=== PATIENT | female | born 1955 | race Caucasian/White ===

== ENCOUNTER 2017-02-14 18:15 | Emergency (ER) | payer OTHER ==
[2017-02-14 18:19] VITALS: BP 124/61; PULSE 86; TEMP 98.1; BMI 46.5
--- NOTE | 2017-02-14 19:05 | PDOC ---
History of Present Illness - General Chief Complaint: Injury Stated Complaint: LACERATION Time Seen by Provider: 02/14/17 19:01 History Source: Patient Exam Limitations: No Limitations - History of Present Illness Initial Comments: 02/14/17 19:07 MY CHIEF COMPLAINT: LACERATION RT. FOOT 5TH TOE HISTORY OF PRESENT ILLNESS: PT IS A 61 Y/O FEMALE WITH H/O LEUKEMIA, AND LEFT BREAST CA HERE TODAY WITH LACERATION TO RT. 5TH TOE AFTER DROPPING A COOKING POT ON HER TOE PRIOR TO ARRIVAL HERE. PT. DENIES ANY PAIN IN RT. FOOT, IS ABLE TO MOVE ALL TOES AND RT. FOOT. PT. HAD BEEN SEEN HERE ON 01/27/17 WAS NOTED TO HAVE A 5 TH MCP JT FRACTURE PROXIMALLY . PT. DENIES ANY NUMBNESS OF FOOT. PT IS UNSURE OF HER TETANUS VACCINE STATUS. 02/14/17 20:00 Occurred: reports: just prior to arrival Pain Location: reports: lower extremity (rt) Past History - Past Medical History Allergies/Adverse Reactions: Allergies Allergy/AdvReac Type Severity Reaction Status Date / Time aspirin Allergy Swelling Verified 02/14/17 18:20 Home Medications: Ambulatory Orders Amoxicillin/Potassium Clav [Augmentin 875-125 Tablet] 1 each PO BID #20 tablet 10/31/15 Cephalexin Monohydrate [Keflex -] 500 mg PO Q8H #29 capsule 02/14/17 Cancer: Yes (S/P BREAST CA, LEUKEMIA) Diabetes: Yes (pre) HTN: Yes - Surgical History Abdominal Surgery: Yes (gastric bypass) - Psycho/Social/Smoking Cessation Hx Suicidal Ideation: No Smoking History: Never smoked Information on smoking cessation initiated: No Hx Alcohol Use: No Drug/Substance Use Hx: No Substance Use Type: None Review of Systems - Review of Systems Able to Perform ROS?: Yes Constitutional: No: Symptoms Reported HEENTM: No: Symptoms Reported Respiratory: No: Symptoms reported Cardiac (ROS): No: Symptoms Reported ABD/GI: No: Symptoms Reported : No: Symptoms Reported Musculoskeletal: No: Symptoms Reported Integumentary: Yes: Other (LACERATION PROXIMAL TO RT. 5TH TOES LINEAR) Neurological: No: Symptoms reported *Physical Exam - Vital Signs Last Vital Signs Temp Pulse Resp BP Pulse Ox 98.1 F 86 18 124/61 97 02/14/17 18:18 02/14/17 18:18 02/14/17 18:18 02/14/17 18:18 02/14/17 18:18 - Physical Exam General Appearance: Yes: Appropriately Dressed Vascular Pulses: Dorsalis-Pedis (R): 4+ Extremity: positive: Normal Capillary Refill, Normal Range of Motion (RT. FOOT ALL TOES) Integumentary: positive: Other (linear laceration rt. foot slightly proximal to 5 toe approx 2.6 cm x 0.25 cm ) Neurologic: positive: Alert, Normal Response, Respond to painful stimul (rt. foot/toes ), Responsive. negative: Numbness, Sensory Deficit (rt. foot/toes) Procedures - Consent Consent obtained: From Patient - Laceration/Wound Repair Right Proximal Dorsal Toe 5th digit Wound Length: 2.6 to 5.0 cm Wound Explored: clean Wound's Depth, Shape: superficial, linear Irrigated w/ Saline: Yes Betadine Prep: Yes Anesthesia: 1% Lidocaine Amount of Anesthetic (ccs): 5 Wound Repaired With: Sutures Suture Size/Type: 4:0 Number of Sutures: 5 (interrupted ) Sterile Dressing Applied: No Splint Applied: No Sling Applied: No ED Treatment Course - RADIOLOGY Radiology Studies Ordered: Category Date Time Status FOOT-RIGHT [RAD] Stat Radiology 02/14/17 19:04 Ordered Medical Decision Making - Medical Decision Making 02/14/17 19:23 PT IS A 61 Y/O FEMALE WITH H/O LEUKEMIA, AND LEFT BREAST CA HERE TODAY WITH LACERATION TO RT. 5TH TOE AFTER DROPPING A COOKING POT ON HER TOE PRIOR TO ARRIVAL HERE. PT. DENIES ANY PAIN IN RT. FOOT, IS ABLE TO MOVE ALL TOES AND RT. FOOT. PT. HAD BEEN SEEN HERE ON 01/27/17 WAS NOTED TO HAVE A 5 TH MCP JT FRACTURE PROXIMALLY . PT. DENIES ANY NUMBNESS OF FOOT. PT IS UNSURE OF HER TETANUS VACCINE STATUS. 02/14/17 20:00 right foot proximal to 5th toe r/o fracture rt. foot, 5th toe PLAN: TDAP 0.5ml IM now keflex 500 mg po now than q 8 hrs for 10 days suture removal in 10-14 days XRAY RIGHT FOOT NEGATIVE FOR FRACTURE 02/14/17 20:06 *DC/Admit/Observation/Transfer Diagnosis at time of Disposition: Laceration of foot Qualifiers: Encounter type: initial encounter Laterality: right Qualified Code(s): S91.311A - Laceration without foreign body, right foot, initial encounter - Discharge Dispostion Disposition: HOME Condition at time of disposition: Stable - Prescriptions Prescriptions: Cephalexin Monohydrate [Keflex -] 500 mg PO Q8H #29 capsule - Referrals Referrals: Guillaume Young MD [Primary Care Provider] - - Patient Instructions Additional Instructions: CLEANSE WOUND WITH ANTIBACTERIAL SOAP AND WATER, DRY APPLY THAN APPLY TINY AMOUNT OF BACITRACIN OINTMENT COVER WITH BANDAID LET AIR OUT AT NIGHT WHEN SLEEPING RETURN HERE IN 10-14 DAYS FOR SUTURE REMOVAL OR SOONER IF ANY REDNESS AROUND WOUND OR FEVER OR DISCHARGE TODAY YOUR TETANUS, DIPTHERIA AND PERTUSSIS VACCINE WAS UPDATED PATIENT VOICED UNDERSTANDING OF DISCHARGE INSTRUCTIONS AND ALL QUESTIONS WERE ANSWERED
[2017-02-14] MEDS ORDERED: DIPHTH,PERTUSS(ACELL),TET 0.5 ML DISP.SYRIN IM ONE (19:56)
[2017-02-14] MEDS ORDERED: CEPHALEXIN MONOHYDRATE 500 MG CAPSULE (UD) PO ONE (19:58)
[2017-02-14] MEDS ORDERED: CEPHALEXIN MONOHYDRATE 500 MG CAPSULE (UD) ONE (20:24)
== END 2017-02-14 21:00 | disposition home or self-care (01) ==
LOC: JERFT 18:15
PROC: 0HQMXZZ Repair Right Foot Skin, External Approach (ICD-10-PCS; principal; 2017-02-14)
PROC: 3E0234Z Introduction of Serum, Toxoid and Vaccine into Muscle, Percutaneous Approach (ICD-10-PCS; 2017-02-14)
DX: S91.114A Laceration without foreign body of right lesser toe(s) without damage to nail, initial encounter (principal); W20.8XXA Other cause of strike by thrown, projected or falling object, initial encounter; Y93.89 Activity, other specified; Y92.038 Other place in apartment as the place of occurrence of the external cause; I10 Essential (primary) hypertension; R73.03 Prediabetes; Z85.6 Personal history of leukemia
CPT/HCPCS: 73630-TC-RT; 90715; 99281-25

== ENCOUNTER 2017-02-24 09:13 | Emergency (ER) | payer OTHER ==
[2017-02-24 09:16] VITALS: BP 134/76; PULSE 67; TEMP 98.3; BMI 46.5
--- NOTE | 2017-02-24 09:52 | PDOC ---
Suture Removal/Wound Check HPI - History of Present Illness Chief Complaint: Suture/Staple Removal(Here) Stated Complaint: SUTURE REMOVAL Time Seen by Provider: 02/24/17 09:34 History Source: Yes: Patient Exam Limitations: Yes: No Limitations Treated at: [facility] Date of Last ED visit: 02/14/17 - Previous ED Treatment Type of procedure performed on last visit: Yes: Laceration Repair Tetanus Immunization: Yes: Given at last ED visit Antibiotics Prescribed: Yes (keflex) - Onset of Previous Treatment Date of Occurence: 02/14/17 Comment:: 02/24/17 09:59 MY CHIEF COMPLAINT: HERE FOR SUTURE REMOVAL RT. FOOT HISTORY OF PRESENT ILLNESS: She is a 61 year old female with a history of leukemia here today for suture removal on her right foot between her right fourth and fifth toes patient was sutured here on 02/14/2017. Patient is up-to- date with tetanus given at last visit and patient was discharged on Keflex for which she has been compliant with. Patient denies any tenderness of the area. Patient reports that she has been letting the area air out at night. Patient denies any fever or redness of area. 02/24/17 10:42 Past History - Past Medical History Allergies/Adverse Reactions: Allergies aspirin Allergy (Verified 02/24/17 09:16) Swelling Home Medications: Ambulatory Orders NK [No Known Home Medication] 02/24/17 General: Yes: other (leukemia in remission ) - Social History Smoking Status: Never smoked Suture Removal/Wound Check PE - Physical Exam Laceration/Wound Check Symptoms: reports: None Current Severity Level: None Maximum Severity Level: None Location of Laceration/Wound: right: Foot (between rt. 4th & 5 th toe) Comments: 02/24/17 09:54 moistness of skin noted at suture line, one interrupted suture removed, wound edge widened, skin around edges pale, no signs of infection 4 interrupted sutures remain Pain Radiation: None *Review of Systems - Review of Systems Able to Perform ROS?: Yes Constitutional: No: Symptoms Reported HEENTM: No: Symptoms Reported Respiratory: No: Symptoms reported Cardiac (ROS): No: Symptoms Reported ABD/GI: No: Symptoms Reported : No: Symptoms Reported Musculoskeletal: No: Symptoms Reported Integumentary: Yes: Other (suture line rt foot between 4th and 5 th 5 sutures placed on 7/20/17 here, no c/o pain ) Neurological: No: Symptoms reported Procedures - Consent Consent obtained: From Patient - Additional Procedures Progress: 02/24/17 09:58 suture line Betadine and normal saline 0.9% area dried well and one suture removed without complications wound is slightly widened will not remove remaining sutures for remain wound edges pain now and moist Band-Aid applied Medical Decision Making - Medical Decision Making 02/24/17 10:43 She is a 61 year old female with a history of leukemia here today for suture removal on her right foot between her right fourth and fifth toes patient was sutured here on 02/14/2017. Patient is up-to-date with tetanus given at last visit and patient was discharged on Keflex for which she has been compliant with. Patient denies any tenderness of the area. Patient reports that she has been letting the area air out at night. Patient denies any fever or redness of area. RIGHT FOOT SUTURE REMOVAL ONE SUTURE REMOVED ONLY 4 REMAINING PLAN: REMOVED ONE SUTURE WILL HAVE PT RETURN IN 3-4 DAYS DUE TO SUTURE LINE BEING MOIST, WOUND EDGES PALE 4 SUTURES REMAINING PT. INSTRUCTED TO NOT APPLY BACITRACIN OINTMENT TO CLEANSE WITH ANTIBACTERIAL SOAP AND WATER, DRY AREA LET AIR OUT MORE OFTEN *DC/Admit/Observation/Transfer Diagnosis at time of Disposition: Visit for suture removal - Discharge Dispostion Disposition: HOME Condition at time of disposition: Stable - Referrals Referrals: Guillaume Young MD [Primary Care Provider] - - Patient Instructions Additional Instructions: Keep wound dry may wash with antibacterial soap and water pat dry allow it to air out more often went home and at night when sleeping Return here in 3-4 days for remaining suture removal Patient voiced understanding of discharge instructions and all questions were answered
== END 2017-02-24 10:22 | disposition home or self-care (01) ==
LOC: JERFT 09:13
DX: Z48.02 Encounter for removal of sutures (principal)
CPT/HCPCS: 99281-25

== ENCOUNTER 2017-02-28 09:24 | Emergency (ER) | payer OTHER ==
[2017-02-28 09:33] VITALS: BP 129/84; PULSE 81; TEMP 98; BMI 47.0
--- NOTE | 2017-02-28 09:52 | PDOC ---
Suture Removal/Wound Check HPI - History of Present Illness Chief Complaint: Suture/Staple Removal(Here) Stated Complaint: SUTURE REMOVAL Time Seen by Provider: 02/28/17 09:35 History Source: Yes: Patient Exam Limitations: Yes: No Limitations Treated at: [facility] Date of Last ED visit: 02/14/17 - Previous ED Treatment Type of procedure performed on last visit: Yes: Laceration Repair Past History - Travel Traveled outside of the country in the last 30 days: No Close contact w/someone who was outside of country & ill: No - Past Medical History Allergies/Adverse Reactions: Allergies aspirin Allergy (Verified 02/28/17 09:33) Swelling Home Medications: Ambulatory Orders NK [No Known Home Medication] 02/24/17 General: Yes: no pertinent history - Social History Smoking Status: Never smoked Suture Removal/Wound Check PE - Physical Exam Laceration/Wound Check Symptoms: reports: None Current Severity Level: None Location of Laceration/Wound: right: Foot (4 sutures removed from 4,5webspasce- poorly approximated, streristrips applied ) Pain Radiation: None *Review of Systems - Review of Systems Able to Perform ROS?: Yes Constitutional: Yes: See HPI. No: Symptoms Reported, Fever, Malaise HEENTM: No: Symptoms Reported Musculoskeletal: Yes: See HPI. No: Symptoms Reported All Other Systems: Reviewed and Negative *DC/Admit/Observation/Transfer Diagnosis at time of Disposition: Visit for suture removal - Discharge Dispostion Disposition: HOME Condition at time of disposition: Stable Admit: No - Patient Instructions Printed Discharge Instructions: DI for Suture Removal
== END 2017-02-28 09:53 | disposition home or self-care (01) ==
LOC: JERFT 09:24
DX: Z48.02 Encounter for removal of sutures (principal)
CPT/HCPCS: 99281-25